=== PATIENT | male | born 1945 | race Caucasian/White ===

== ENCOUNTER → 2019-05-12 | Outpatient (CLI) | payer MEDICARE, OTHER ==
[~2019-05-12] MED LIST: AMLO5TAB10 PO; ATOR40TA59 PO; CYCL10TA2 PO; DULO30CA2 PO; FURO-69 PO; GABA300C18 PO; HYDR25TA PO; IOHEXOL 180 MG/ML 10 ML VIAL. IT ONE; LIDOCAINE 1% Multi-Dose 20 ML VIAL. IM ONE; MELO15TA23 PO; METO50TA6 PO; OMEG-117 PO; RANI300C PO; SERT50TA PO; TRAZ-86 PO; WARF1TAB74 PO
--- NOTE | 2019-05-12 17:16 | KCIC ---
CT lumbar spine exam History: Low back pain, previous surgery, right hip pain, right radiculopathy Technique: CT imaging was performed of the lumbar spine after injection for lumbar myelogram. Multiplanar reconstruction images are submitted. Exposure: One or more of the following individualized dose reduction techniques were utilized for this examination: 1. Automated exposure control 2. Adjustment of the mA and/or kV according to patient size 3. Use of iterative reconstruction technique. Comparison: Noncontrast CT lumbar spine exam January 16, 2011 Findings: There are again bilateral pedicle screws attached to intact vertical rods at L4-5. Lumbar vertebral body stature is unchanged, overall preserved. There is similar very mild grade 1 anterior spondylolisthesis L4-5. Intervertebral disc spaces are relatively preserved. Conus terminates near L1-2. There is scattered calcified plaque of abdominal aorta and branches. There is ectatic infrarenal abdominal aorta about 2.9 cm. T12-L1: Spinal canal and neural foramina are adequate. There is klry-qq-[id number] facet degenerative change. L1-L2: There is moderate to severe facet degenerative change and minimal buckling of the ligamentum flavum. There is negligible disc osteophyte complex. Spinal canal is adequate. There is mild neural foramina compromise bilaterally. L2-L3: There is fairly severe facet degenerative change. There is mild buckling of the ligamentum flavum. There is minimal disc osteophyte complex. There is mild narrowing of the far lateral recesses bilaterally somewhat greater on the right primarily from posteriorly by facets. There is mild neural foramina compromise bilaterally. L3-L4: There is severe facet degenerative change greater on right. There is mild buckling of the ligamentum flavum flavum. There is partially calcified posterior bulge/broad protrusion. Combination of findings results in moderate spinal stenosis, lateral recess stenosis bilaterally. There is moderate to severe narrowing of the right neural foramen primarily from posteriorly by facet and ligamentum flavum although also inferior narrowing by disc osteophyte complex. There is also moderate to severe narrowing of the left neural foramen primarily from posteriorly. L4-L5: There is fairly severe facet degenerative change greater on the right. There has been posterior decompression, spinal canal adequate. There is mild bilateral neural foramina compromise. L5-S1: There is mild facet hypertrophic change. Spinal canal is adequate. Right neural foramen is adequate. There is minimal disc osteophyte complex in the inferior left neural foramen, left neural foramen not significantly narrowed. Impression: 1. There is overall moderate spinal stenosis at L3-4, somewhat limited preserved subarachnoid space. There is mild narrowing of the far lateral recesses bilaterally at L2-3. There is multilevel lumbar facet degenerative change. 2. There is intact posterolateral fusion hardware L4-5. There is stable minimal grade 1 anterior spondylolisthesis L4-5. 3. There is neural foramina compromise as stated most notable bilaterally at L3-4. 4. There is ectatic infrarenal abdominal aorta up to 2.9 cm. Electronically signed by: Robin Loyd MD (05/12/2019 5:13 PM) [email or web address]
--- NOTE | 2019-05-12 17:17 | KCIC ---
Lumbar Myelogram History: Low back pain, right radiculopathy, right hip pain, previous surgery Technique: Patient was informed of the risks of the procedure to include pain, infection, bleeding, seizures, nerve root injury, and allergic reaction to the contrast. Patient was premedicated due to history of previous hives after intravenous contrast. All questions were answered. Patient signed a written consent form for a lumbar myelogram. The patient was placed in a prone oblique position on the flouroscopy table. External site of the lower back was prepped and draped in the usual sterile fashion. Betadine was utilized for cleansing solution. 1% lidocaine was utilized for local anesthesia at the anticipated site of puncture right L2-3 interlaminar space. A 19-gauge guiding needle was advanced into the soft tissues. Through the guiding needle, a 25 gauge Arjun needle was advanced until there was return of cerebral spinal fluid. Approximately 15 cc of Omnipaque 180 were then injected during fluoroscopic visualization. The needles were removed. Fluoroscopic spot images including standing images were acquired of the lumbar spine. The patient was then transferred to the CT department for CT examination of the lumbar spine. There were no immediate complications. Fluoroscopy time: 1 minute 20 seconds, 17 images Findings: There are bilateral pedicle screws at L4 and L5 attached to intact vertical rods. There are circumferential extradural defects at L3-4 with overall moderate attenuation of the thecal sac, also lateral extradural defects bilaterally and also small anterior extradural defect at the L2-3 level. Impression: 1. There are circumferential extradural defects at L3-4 with moderate attenuation of the thecal sac, also lateral extradural defects bilaterally and small anterior extradural defect at L2-3. 2. There is intact posterolateral fusion hardware L4-5. Electronically signed by: Robin Loyd MD (05/12/2019 5:14 PM) [facility]-[email or web address]
--- NOTE | 2019-05-12 17:20 | KCIC ---
LUMBAR SPINE 2-3V History: Right radiculopathy, low back pain Comparison: CT exam January 16, 2011 Findings: 3 views of the lumbar spine to include neutral, flexion, extension lateral radiographs are submitted. There is intact posterolateral fusion hardware with bilateral pedicle screws attached to vertical rods L4-L5. There is grade 1 anterior spondylolisthesis L4-5 similar with flexion and extension. There is minimal grade 1 anterior spondylolisthesis T12-L1 reduced with extension. There is minimal posterior subluxation L2 relative L3 reduced with flexion. There is very minimal posterior subluxation L1 relative L2 also partially reduced with fraction. There is multilevel lumbar facet degenerative change. There is atherosclerotic calcification of the abdominal aorta. Impression: 1. There is multilevel mild abnormal alignment as stated. There is intact posterolateral fusion hardware L4-5. Electronically signed by: Robin Loyd MD (05/12/2019 5:17 PM) [facility]-[email or web address]
== END | disposition home or self-care (01) ==
LOC: KCIC 13:45
PROVIDERS: ATTEND Neurological Surgery
DX: M48.061 Spinal stenosis, lumbar region without neurogenic claudication (principal); M43.15 Spondylolisthesis, thoracolumbar region; M51.16 Intervertebral disc disorders with radiculopathy, lumbar region; M47.26 Other spondylosis with radiculopathy, lumbar region; M89.38 Hypertrophy of bone, other site; M53.2X6 Spinal instabilities, lumbar region; M25.78 Osteophyte, vertebrae; I70.0 Atherosclerosis of aorta; I77.811 Abdominal aortic ectasia; I10 Essential (primary) hypertension; Z88.8 Allergy status to other drugs, medicaments and biological substances; Z95.0 Presence of cardiac pacemaker; Z79.01 Long term (current) use of anticoagulants
CPT/HCPCS: 72100; 72132; 72265; Q9965

== ENCOUNTER → 2019-06-02 | Outpatient (CLI) | payer MEDICARE, OTHER ==
[~2019-06-02] MED LIST changes: +ACET325T9 PO; +ASPI81TA50 PO; +CHOL20009 PO; +DIAZ2TAB PO; +DIGO250T PO; +FLUT9.9S NS; -IOHEXOL 180 MG/ML 10 ML VIAL. IT ONE; -LIDOCAINE 1% Multi-Dose 20 ML VIAL. IM ONE; +OMEP40CA5 PO; +POTA10TA12 PO; +PROP225C2 PO
[2019-06-02 11:18] LABS: BASO # 0.1 x10^3/uL (0.0-0.2); BASO % 1 % (0-3); EOS # 0.4 x10^3/uL (0.0-0.7); EOS % 5 % (0-3); HEMATOCRIT 44.9 % (39.0-53.0); HEMOGLOBIN 15.2 g/dL (13.0-17.5); LYMPH # 1.1 x10^3/uL (1.0-4.8); LYMPH % 13 % (24-48); MEAN CORPUSCULAR HEMOGLOBIN 30 pg (25-35); MEAN CORPUSCULAR HGB CONC 34 g/dL (31-37); MEAN CORPUSCULAR VOLUME 88 fL (79-100); MONO # 0.7 x10^3/uL (0.0-1.1); MONO % 9 % (0-9); NEUT # 5.7 x10^3/uL (1.8-7.7); NEUT % 72 % (31-73); PLATELET COUNT 175 x10^3/uL (140-400); RED CELL DISTRIBUTION WIDTH 14.9 % (11.5-14.5); WHITE BLOOD COUNT 7.9 x10^3/uL (4.0-11.0)
[2019-06-02 11:36] LABS: PROTHROMBIN TIME PATIENT 23.1 SEC (11.7-14.0)
[2019-06-02 11:37] LABS: ALBUMIN 3.7 g/dL (3.4-5.0); CALCIUM 8.9 mg/dL (8.5-10.1); CREATININE 1.2 mg/dL (0.7-1.3); GFR 58.9; TOTAL BILIRUBIN 0.7 mg/dL (0.2-1.0); TOTAL PROTEIN 7.3 g/dL (6.4-8.2)
== END | disposition home or self-care (01) ==
LOC: SURGPAT 09:46
PROVIDERS: ATTEND Neurological Surgery
DX: Z01.818 Encounter for other preprocedural examination (principal); M48.061 Spinal stenosis, lumbar region without neurogenic claudication; Z88.5 Allergy status to narcotic agent; Z88.8 Allergy status to other drugs, medicaments and biological substances; Z91.041 Radiographic dye allergy status
CPT/HCPCS: 36415; 80053; 85025; 85610; 85730; 87641

== ENCOUNTER 2019-06-13 07:49 | Observation (INO) | payer MEDICARE, OTHER ==
--- NOTE | 2019-06-12 15:29 | HP ---
ADMIT DATE: 06/13/2109. PREOPERATIVE HISTORY AND PHYSICAL DATE OF SURGERY: 06/13/2019. HISTORY OF PRESENT ILLNESS: The patient is a pleasant 74-year-old who has undergone both cervical and lumbar surgery by me in the past. His current problem is right greater than left low back pain and right greater than left buttock, thigh and leg pain. The problem started about 2 years ago and is slowly worsening. It began after a fall. He rates his pain currently as an 8/10. Standing and walking increases pain. An activity helps. Gabapentin also helps him. He has been to the pain clinic with nerve blocks and epidurals which he said only helped for a short time. PAST MEDICAL HISTORY: Arthritis, prostate cancer, asthma, heart disease, shingles and a staph infection after right hip replacement. PAST SURGICAL HISTORY: Bilateral foot surgeries, bilateral carpal tunnel release, left knee replacement, right knee replacement, coronary artery bypass graft, sinus surgery, prostatectomy, cardiac stents, cardiac ablation, permanent pacemaker, removal of a melanoma, hernia repair, bilateral rotator cuff repair, cholecystectomy, lumbar fusion at L4-L5 esophagus procedure and bilateral cataract surgery. FAMILY HISTORY: Cancer, diabetes, heart disease and hypertension. SOCIAL HISTORY: Retired. . Previously smoked 1 pack per day for 30 years. Quit smoking 19 years ago. Drinks no alcohol. ALLERGIES: To IV IODINE, BETA ADRENERGIC BLOCKERS, MORPHINE DERIVATIVES AND /CODEINE DERIVATIVES. CURRENT MEDICATIONS: Tylenol, gabapentin, Mobic, aspirin, Coumadin, amlodipine, atorvastatin, Flexeril, digoxin, duloxetine, fish oil, Flonase, hydroxyzine, Lasix, metoprolol, omeprazole, potassium, ranitidine, Rythmol, sertraline, trazodone, vitamin D3 and prednisone. REVIEW OF SYSTEMS: A 12-point review of systems was obtained and is noncontributory except for that mentioned above. PHYSICAL EXAMINATION: NEUROSURGERY EXAMINATION: GENERAL APPEARANCE: Alert, pleasant and in no acute distress. HEAD: Normocephalic and atraumatic. SKIN: Warm and dry. MUSCULOSKELETAL: Lumbar paraspinal muscle bulk is normal, restricted range of motion of lumbar spine, pxic-jz-tzduuptw tenderness of lower lumbar spine with palpation, normal range of motion of the lower extremities bilaterally. EXTREMITIES: No clubbing, cyanosis or edema. NEUROLOGIC: Alert and oriented x 3, normal recent and remote memory, strength 5/5 in bilateral lower extremities, sensory was intact to light touch in lower extremities bilaterally, reflexes are present and symmetric in bilateral lower extremities, negative straight leg raising bilaterally and normal gait. IMAGING DATA: I reviewed a lumbar myelogram, post-myelogram CT scan. On those studies, the principal abnormality is moderately severe lumbar spinal stenosis at L3-L4. There is intact posterior hardware at L4-L5. ASSESSMENT: Spinal stenosis, lumbar region with neurogenic claudication. PLAN: His problems are related to his lumbar spinal stenosis at L3-L4. To gain access to the region, it will require removal of hardware L4-L5 combined with a lumbar laminectomy at L3-L4. He understands the procedure and the risks and expected postoperative course. He would like to proceed. We will make the arrangements. IRWIN WILKERSON MD DR: BIRD/kelsea JOB#: [id number] / [id number] BILLIE
[2019-06-13] VITALS (9 sets, daily range): BP systolic 123–148; BP diastolic 60–77
[~2019-06-13] VITALS: Ht 177.8 cm; Wt 91.6 kg
[~2019-06-13 07:49] MED LIST changes: +BACITRACIN 50,000 UNIT in IV NORMAL SALINE 1000ML BAG 1,000 ML IRR ONE; +BUPIVACAINE-EPI 0.5%-1:200000 MPF 30 ML VIAL. INJ ONE; +GELATIN SPONGE SIZE 100. ONE; +IV RINGERS,LACTATED 1000ML 1,000 ML IV SCH; +KETOROLAC 60 MG/2 ML INJ FOR OR. ONE; +ONDANSETRON PF 4 MG/2 ML VIAL. IV PRN; +PROCHLORPERAZINE 10 MG/2 ML VIAL. IV PRN; +THROMBIN TOPICAL 20,000 UNIT SPRAY.SYRN KIT TP ONE; +VANCOMYCIN 1GM IVPB FOR OMNI 250 ML IV PRN; +fentaNYL PF VIAL 100 MCG/2 ML VIAL IV PRN
[2019-06-13] MEDS ORDERED: ceFAZolin 2GM PREMIX 2 GM/50 ML BAG IV ONE (08:00)
[2019-06-13 09:10] LABS: PROTHROMBIN TIME PATIENT 14.4 SEC (11.7-14.0)
[2019-06-13] MEDS ORDERED: fentaNYL PF VIAL 100 MCG/2 ML VIAL ONE (10:06)
[2019-06-13] MEDS ORDERED: ROCURONIUM 50 MG/5 ML VIAL. ONE (10:06)
[2019-06-13] MEDS ORDERED: REMIFENTANIL 2 MG VIAL. IV ONE (10:07)
[2019-06-13] MEDS ORDERED: DEXAMETHASONE SOD PHOS 4 MG/ML VIAL ONE (10:07)
[2019-06-13] MEDS ORDERED: ETOMIDATE 20 MG/10 ML VIAL. IV ONE (10:07)
[2019-06-13] MEDS ORDERED: ONDANSETRON PF 4 MG/2 ML VIAL. ONE (10:07)
[2019-06-13] MEDS ORDERED: PHENYLEPHRINE 10 MG/ML VIAL. ONE (10:07)
[2019-06-13] MEDS ORDERED: FAMOTIDINE 20 MG/2 ML VIAL ONE (10:12)
[2019-06-13] MEDS ORDERED: LIDOCAINE 2% PF 5 ML VIAL. ONE (10:12)
[2019-06-13] MEDS ORDERED: DEXAMETHASONE SOD PHOS 20 MG/5 ML VIAL. ONE (10:58)
--- NOTE | 2019-06-13 13:30 | RAD ---
RS Compliance Statement: One or more of the following individualized dose reduction techniques were utilized for this examination: 1. Automated exposure control 2. Adjustment of the mA and/or kV according to patient size 3. Use of iterative reconstruction technique CT lumbar spine without contrast 06/13/2019 INDICATION: Lumbar stenosis. COMPARISON: CT lumbar spine 05/12/2019 TECHNIQUE: Multiple axial CT images of the lumbar spine were obtained without intravenous contrast. Coronal and sagittal reformats are provided. FINDINGS: Alignment of the lumbar spine is normal. Vertebral body heights are maintained. No acute fracture is identified. Posterior fusion hardware is identified at L4-L5 with bilateral pedicle screws and dual rods. There is no lucency surrounding the hardware to suggest hardware failure. Right total hip arthroplasty is identified. There is no significant disc height loss. Minimal levoconvex curvature of the lumbar spine centered at L2-L3. Mild degenerative changes of the spinous processes are noted. Mild ectasia of infrarenal abdominal aorta appears stable. No suspicious retroperitoneal abnormality is identified. No renal calculi. No hydronephrosis. L1-L2: Mild disc bulge. Moderate facet arthropathy. Mild bilateral neuroforaminal stenosis. No spinal canal stenosis. L2-L3: There is a moderate disc bulge. Moderate facet arthropathy. There is ligamentum flavum infolding. There is right lateral recess stenosis. Mild spinal canal stenosis. Mild to moderate bilateral neuroforaminal stenosis. L3-L4: There is a moderate disc bulge. There is severe right and moderate left facet arthropathy. There is ligamentum flavum infolding. There is moderate spinal canal stenosis. There is moderate bilateral neuroforaminal stenosis. L4-L5: There is a posterior disc osteophyte complex. Laminectomy changes are identified. This level is decompressed. No residual spinal canal stenosis. There is moderate bilateral neuroforaminal stenosis. IMPRESSION: Stable mild degenerative changes of the lumbar spine with posterior fusion at L4-L5. No evidence for hardware failure. Electronically signed by: Kim Chin MD (06/13/2019 1:27 PM) [facility]-KCIC1
[2019-06-13] MEDS ORDERED: DESFLURANE > 120 MINUTES IH ONE (13:44)
[2019-06-13] MEDS ORDERED: ACETAMINOPHEN 325 MG TABLET. PO PRN ×2 (14:00→14:15)
[2019-06-13] MEDS ORDERED: ONDANSETRON PF 4 MG/2 ML VIAL. IV PRN (14:15)
[2019-06-13] MEDS ORDERED: NALOXONE 0.4 MG/ML VIAL. IV PRN ×2 (14:15)
[2019-06-13] MEDS ORDERED: HYDROcodone/APAP 5/325MG 1 TAB TABLET PO PRN (14:15)
[2019-06-13] MEDS ORDERED: MAGNESIUM HYDROXIDE 2,400 MG/30 ML ORAL.SUSP. PO PRN (14:15)
[2019-06-13] MEDS ORDERED: MAG HYDROX/ALUMINUM HYD/SIMETH 30 ML ORAL.SUSP PO PRN (14:15)
[2019-06-13] MEDS ORDERED: CALCIUM CARBONATE 500 MG TAB.CHEW PO PRN (14:15)
[2019-06-13] MEDS ORDERED: fentaNYL PF VIAL 100 MCG/2 ML VIAL IV PRN (14:15)
[2019-06-13] MEDS ORDERED: 0.9 % SODIUM CHLORIDE 10 ML DISP.SYRIN. IV PRN (14:15)
[2019-06-13] MEDS ORDERED: diphenhydrAMINE HCL 25 MG CAPSULE PO PRN (14:15)
[2019-06-13] MEDS ORDERED: FLUTICASONE 50MCG/NASAL SPRAY 16GM BOTTLE. NS SCH (15:00)
[2019-06-13] MEDS: amLODIPine BESYLATE 5 MG TABLET PO SCH (15:00)
[2019-06-13] MEDS: DIGOXIN 250 MCG TABLET. PO SCH (15:00)
--- NOTE | 2019-06-13 15:50 | NUR ---
Received from PACU per bed, alert/oriented, slightly forgetful, midline dressing clean dry & intact, right buttock dressing with shadowing noted, states discomfort level 4-5/10, ice pack for comfort, bilateral RYAN hose & HARRIS in place, oxygen at 4L/nc, incentive spirometry pulls in up to 1500cc , family members present, oriented to surroundings, call light in reach, bilateral upper rails elevated, call light within reach
[2019-06-13] MEDS: FUROSEMIDE 20 MG TABLET PO SCH (17:46)
[2019-06-13] MEDS: PANTOPRAZOLE 40 MG TABLET.DR. PO SCH (17:46)
[2019-06-13] MEDS: POTASSIUM CHLORIDE 10 MEQ TABLET.ER. PO SCH (17:47)
[2019-06-13] MEDS: DULoxetine HCL 30 MG CAPSULE.DR PO SCH (17:47)
[2019-06-13] MEDS: CYCLOBENZAPRINE 10 MG TABLET. PO SCH ×2 (17:47→21:53)
[2019-06-13] MEDS: SERTRALINE 50 MG TABLET. PO SCH (17:47)
[2019-06-13] MEDS: CHOLECALCIFEROL (VITAMIN D3) 1,000 UNIT TABLET PO SCH (17:47)
[2019-06-13] MEDS: HYDROcodone/APAP 5/325MG 1 TAB TABLET PO PRN (17:48)
[2019-06-13] MEDS: FAMOTIDINE 20 MG TABLET. PO SCH (17:49)
[2019-06-13] MEDS: FLUTICASONE 50MCG/NASAL SPRAY 16GM BOTTLE. NS SCH (17:49)
[2019-06-13] MEDS: GABAPENTIN 300 MG CAPSULE. PO SCH ×2 (17:52→21:53)
[2019-06-13] MEDS ORDERED: traZODone 100 MG TABLET. PO SCH (21:00)
[2019-06-13] MEDS ORDERED: hydrOXYzine 25 MG TABLET PO SCH (21:00)
[2019-06-13] MEDS ORDERED: ATORVASTATIN CALCIUM 40 MG TABLET. PO SCH (21:00)
[2019-06-13] MEDS: PROPAFENONE 150 MG TABLET. PO SCH (21:52)
[2019-06-13] MEDS: DOCUSATE SODIUM 100 MG CAPSULE. PO SCH (21:52)
[2019-06-13] MEDS: METOPROLOL TART IMMED RELEASE 50 MG TABLET. PO SCH (21:54)
[2019-06-13] MEDS: POTASSIUM CL 20MEQ D5-0.45NACL 1,000 ML IV SCH (21:59)
--- NOTE | 2019-06-14 00:39 | OP ---
DATE OF SURGERY: 06/13/2019 PREOPERATIVE DIAGNOSIS: Lumbar spinal stenosis, L3-L4. POSTOPERATIVE DIAGNOSIS: Lumbar spinal stenosis, L3-L4. OPERATION PERFORMED: Lumbar laminectomy, L3-L4 with Brain[employer] guidance. SURGEON: Al Wilkerson M.D. DENTAL MOLD MAKER: SHERIN Lantigua assisted with the laminectomy as well as the closure. OPERATIVE INDICATIONS: The patient is a pleasant 74-year-old, who has undergone instrumented fusion at L4-L5 in the past. He then developed problems related to lumbar spinal stenosis, neurogenic claudication and failed conservative measures. On imaging studies, the above-mentioned findings were confirmed and I recommended a lumbar laminectomy. I spoke with him about the surgery, the risks, technique and expected postoperative course and he wished to go ahead. DESCRIPTION OF PROCEDURE: Following general endotracheal anesthesia, the patient was positioned prone on the Rg table. Lumbar region prepped and draped in standard fashion. RYAN hose and AV impulse boots were applied for DVT prophylaxis. The microscope was draped. Fluoroscopy was draped and brought into the field. Monitoring was established. Antibiotics were given preoperatively. [employer] iliac screws were placed into the left iliac crest and the [employer] system was initialized. I felt that most likely this was going to require a hardware removal in order to perform a laminectomy at L3-L4 and I made an incision at L3-L4 extending down over the upper portion of L4 and reflected the paraspinal muscles. The hardware was positioned such that I felt that it was possible that I could perform a laminectomy without removal and therefore, I brought in the microscope at this point and may using the high speed air drill I drilled away the spinous processes of L3 and L4 and then I performed a laminectomy with first a conical bur and then a matchstick type bur. I grasped and peeled away ligamentum flavum. There was scarring of the ligament to the dura on the right side and I gently dissected this free. I performed generous partial foraminotomies bilaterally. I assured myself that my decompression extended above and below the area of severe lumbar stenosis. As I worked, the region became very well decompressed. I irrigated copiously. I did work to obtain excellent hemostasis throughout. I felt very fortunate that I did not have to remove the hardware and was able to obtain adequate exposure. I removed the retractors and I obtained hemostasis in the muscle. I closed the wound in layers of absorbable suture and skin was closed with a 4-0 subcuticular stitch. The operation went very well. I irrigated frequently and I worked diligently with the bipolar cautery to assure excellent hemostasis. Again, I was quite pleased with the surgery. AL WILKERSON MD DR: BIRD/kelsea JOB#: [id number] / [id number] BILLIE
[2019-06-14 03:00] VITALS: BP 106/58
[2019-06-14] MEDS: POTASSIUM CL 20MEQ D5-0.45NACL 1,000 ML IV SCH (03:24)
--- NOTE | 2019-06-14 04:10 | NUR ---
Report received from JESSICA Quintero and assumed care of patient at this time. Patient resting with call light within reach, will continue to monitor.
[2019-06-14] MEDS: PANTOPRAZOLE 40 MG TABLET.DR. PO SCH (06:12)
[2019-06-14 07:00] VITALS: BP 117/53
[2019-06-14] MEDS: HYDROcodone/APAP 5/325MG 1 TAB TABLET PO PRN (07:03)
[2019-06-14] MEDS ORDERED: HYDR-2761 PO (07:41)
[2019-06-14] MEDS ORDERED: DOCU-109 PO (07:41)
--- NOTE | 2019-06-14 07:44 | DISCH ---
DISCHARGE INSTRUCTIONS Condition on Discharge Condition on Discharge: Stable Activity After Discharge Activity Instructions for Disc: Activity as tolerated, Avoid exertion Other activity instructions: no driving for a week Bathing Instructions: Shower-keep dressing dry Lifting Instructions after Dis: No heavy lifting, No pulling or pushing, Do not lift >10 pounds Diet after Discharge Additional Diet Restrictions: resume home diet Wound Incision Care Wound/Incision Care: Ice to area for comfort Other wound/incision instructi: may remove dressing in 48 hours if dry then may shower, no soaking Contacting the after DC Call your doctor for: Concerns you may have Follow-Up Follow up with: Dr. Wilkerson's nurse in 2 weeks [phone] Warfarin Follow-Up Warfarin Follow UP: resume coumadin 06/14/19 IRWIN WILKERSON MD Jun 14, 2019 07:44
[2019-06-14] MEDS: SERTRALINE 50 MG TABLET. PO SCH (08:47)
[2019-06-14] MEDS: DOCUSATE SODIUM 100 MG CAPSULE. PO SCH (08:47)
[2019-06-14] MEDS: GABAPENTIN 300 MG CAPSULE. PO SCH (08:48)
[2019-06-14] MEDS: FAMOTIDINE 20 MG TABLET. PO SCH (08:48)
[2019-06-14] MEDS: amLODIPine BESYLATE 5 MG TABLET PO SCH (08:49)
[2019-06-14] MEDS: FUROSEMIDE 20 MG TABLET PO SCH (08:49)
[2019-06-14] MEDS: CHOLECALCIFEROL (VITAMIN D3) 1,000 UNIT TABLET PO SCH (08:50)
[2019-06-14] MEDS: DULoxetine HCL 30 MG CAPSULE.DR PO SCH (08:50)
[2019-06-14] MEDS: POTASSIUM CHLORIDE 10 MEQ TABLET.ER. PO SCH (08:50)
[2019-06-14] MEDS: CYCLOBENZAPRINE 10 MG TABLET. PO SCH (08:50)
[2019-06-14] MEDS: METOPROLOL TART IMMED RELEASE 50 MG TABLET. PO SCH (08:51)
[2019-06-14] MEDS: DIGOXIN 250 MCG TABLET. PO SCH (08:51)
[2019-06-14 08:52] VITALS: BP 117/53
[2019-06-14] MEDS: FLUTICASONE 50MCG/NASAL SPRAY 16GM BOTTLE. NS SCH (08:52)
[2019-06-14] MEDS: PROPAFENONE 150 MG TABLET. PO SCH (08:52)
[2019-06-14] MEDS ORDERED: diazePAM 2 MG TABLET PO SCH (09:00)
[2019-06-14] MEDS ORDERED: MELOXICAM 7.5 MG TABLET PO SCH (09:00)
[2019-06-14] MEDS ORDERED: ASPIRIN ENTERIC COATED 81 MG TABLET.DR. PO SCH (09:00)
--- NOTE | 2019-06-14 11:52 | DS ---
DATE OF DISCHARGE: 06/14/2019 DISCHARGE DIAGNOSES: Lumbar spinal stenosis, L3-L4. OPERATION PERFORMED: Lumbar laminectomy, L3-L4. HISTORY OF PRESENT ILLNESS: The patient is a pleasant 74-year-old man who has undergone an instrumented fusion at L4-L5 in the past. He then developed problems with lumbar spinal stenosis and neurogenic claudication and failed to improve with conservative measures. On imaging studies, the above-mentioned findings were seen and I recommended a lumbar laminectomy. He understood the surgery, the risk and the technique and expected postoperative course and wished to proceed. HOSPITAL COURSE: He was admitted to the floor postoperatively where he is doing well. He is up ambulating in the room and in the halls. Physical therapy was initiated and instruction was given to him regarding his activities. His pain is well controlled and he is tolerating pain medication well and in good condition to discharge home. DISCHARGE MEDICATIONS: He will resume his medications per the MRAD. DISCHARGE INSTRUCTIONS: He was instructed regarding incision care, activity restrictions and expectations for the next several weeks. He will follow up in our office in 2 weeks. He understands to call with any questions or concerns. IRWIN WILKERSON MD DR: DMITRI/kelsea JOB#: [id number] / [id number]
--- NOTE | 2019-06-14 12:02 | NUR ---
Discharge teaching completed. IV site discontinued without difficulty. two prescriptions given to pt. I taught the dressing change technique and gave her/patient a supply of dressings. Patient and spouse state that they have all personal belongings and understand discharge teaching; dressing changes and home medications. Pt was discharge to home with spouse; escorted out via w/c by staff.
--- NOTE | 2019-06-17 18:06 | PATHOLOGY ---
[facility] Accession Number: [id number] . 01 Material submitted: . vertebral column - LUMBAR DECOMPRESSION . 01 Clinical history: . Lumbar stenosis. . 02 Diagnosis: Segments of fibrocartilaginous and skeletal muscle tissue and bone, lumbar decompression: - Degenerative changes of fibrocartilaginous tissue. LBQ/06/17/2019 . 02 Comment: There is no evidence of an acute inflammatory process or malignancy. (JPM/db; 06/17/2019) . 02 Electronically signed: . Juan Antonio Lopez MD, Pathologist NPI- [id number] . 01 Gross description: . Received in formalin labeled "Herb Holbrook, lumbar decompression" is a 7.2 x 5.5 x 1.7 cm aggregate of sheldon-brown, rubbery and firm soft tissue and sheldon-white bony tissue fragments. Meter Reading Clerk tissue is submitted in cassette A1 following decalcification. ([facility] [place]; 06/14/2019) SYC/SYC . 02 Pathologist provided ICD-10: M51.36 . 02 CPT . 864293, [id number] Specimen Comment: A courtesy copy of this report has been sent to Specimen Comment: [phone]. Specimen Comment: Report sent to Performed at: [address] [facility] [address], [place], [place] [id number] MD Dwayne Martinez MD Phone: [phone] Performed at: 02 [facility] [address], [place] [id number] MD Juan Antonio Lopez MD Phone: [phone]
== END 2019-06-14 12:00 | disposition home or self-care (01) ==
LOC: SURG 07:49 → 4 NORTH 14:00
PROVIDERS: ADMIT Neurological Surgery; ATTEND Neurological Surgery
DX: M48.062 Spinal stenosis, lumbar region with neurogenic claudication (principal); M19.90 Unspecified osteoarthritis, unspecified site; J45.909 Unspecified asthma, uncomplicated; Z96.641 Presence of right artificial hip joint; Z85.46 Personal history of malignant neoplasm of prostate; Z82.49 Family history of ischemic heart disease and other diseases of the circulatory system; Z87.891 Personal history of nicotine dependence; Z83.3 Family history of diabetes mellitus; Z85.820 Personal history of malignant melanoma of skin; Z95.1 Presence of aortocoronary bypass graft; Z95.5 Presence of coronary angioplasty implant and graft; Z96.653 Presence of artificial knee joint, bilateral; W19.XXXA Unspecified fall, initial encounter
CPT/HCPCS: 36415; 63047; 72131; 76000; 85610; 85730; 86850; 86900; 86901; 88304; 88311; 96374; 97161; A7015; G0378; G0379; J0696; J1100; J1885; J2001; J3010; J3370; J3490; J7030; J7120; J2405